=== PATIENT | female | born 1965 | race Caucasian/White ===

== ENCOUNTER 2020-01-20 13:56 | Emergency (ER) | payer BC ==
[~2020-01-20] VITALS: Ht 157.5 cm; Wt 80.7 kg
[~2020-01-20 13:56] MED LIST: Z.0.AMLODIPINE BESYL PO; Z.0.METOPROLOL SUCC5 PO
[2020-01-20] MEDS ORDERED: FAMOTIDINE 20 MG TAB PO ONE (14:30)
[2020-01-20] MEDS ORDERED: PREDNISONE 20 MG TAB ONE (14:33)
[2020-01-20] MEDS ORDERED: FAMOTIDINE 20 MG TAB ONE (14:33)
[2020-01-20] MEDS ORDERED: PREDNISONE20 MG PO (14:47)
[2020-01-20] MEDS ORDERED: PEPCID20 MG PO (14:47)
--- NOTE | 2020-01-20 14:47 | Emergency Department Note ---
History of Present Illnes History of Present Illness Chief Complaint: facial swelling/itchy rash on face/chest s/p taking alleve History of Present Illness This is a 54 year old female. was doing well prior to this. pt has had 3 other similar episode. no senation of closing of throat nor tongue Historian: Patient Arrival Mode: Car History limited by: condition of the patient (nor) Ethics Instructor Required: No Onset (how long ago): day(s) (1) Location: see above Quality: see above Radiation: Reports non-radiation Severity: mild Onset quality: gradual Duration (how long): day(s) (1) Timing of current episode: constant Progression: worsening Chronicity: recurrent Context: Denies recent illness, Denies recent surgery, Denies recent immobiliza tion, Denies recent travel, Denies trauma/injury, Denies new medications, Denies hx of DVT/PE, Denies non-compliance w/ medications Relieving factors: none Exacerbating factors: none Associated symptoms: Reports denies other symptoms Treatments prior to arrival: none Past Medical/Family History Physician Review I have reviewed the patient's past medical and family history. Any updates have been documented here. Past Medical History Recent Fever: No Clinical Suspicion of Infectio: No New/Unexplained Change in Ment: No Other Medical History: arrhythmia, mvp, allergic reaction Other Surgery: endometrial ablasion, corneal implant Social History Smoking Cessation: Never Smoker Counseling Performed: No Alcohol Use: None Any Illegal Drug Use: No TB Exposure/Symptoms: No Physically hurt or threatened: No Family History Family history of heart diseas: No Other Last Tetanus: unknown Any Pre-Existing Lines (PICC,: No Is patient up to date on immun: No Review of Systems Review of Systems Constitutional: Reports no symptoms EENTM: Reports as per HPI Cardiovascular: Reports no symptoms Respiratory: Reports no symptoms Gastrointestinal: Reports no symptoms Genitourinary: Reports no symptoms Musculoskeletal: Reports no symptoms Integumentary: Reports as per HPI, Reports rash Neurological: Reports no symptoms Psychological: Reports no symptoms Endocrine: Reports no symptoms Hematological/Lymphatic: Reports no symptoms Review of other systems: All other systems negative Physical Exam Related Data Allergies: Coded Allergies: Sulfa (Sulfonamide Antibiotics) (Verified Allergy, Severe, COMA, 08/21/13) naproxen (Verified Allergy, Unknown, 01/20/20) Vital signs reviewed: Yes Physical Exam CONSTITUTIONAL Constitutional: Present well-developed, Present well-nourished HENT HENT: Present normocephalic, Present atraumatic, Present oropharynx clear/moist, Present nose normal, Present other (no angioedema of the tongue) HENT L/R: Present left ext ear normal, Present right ext ear normal EYES Eyes: Reports PERRL, Reports conjunctivae normal NECK Neck: Present ROM normal, Present supple PULMONARY Pulmonary: Present effort normal, Present breath sounds normal CARDIOVASCULAR Cardiovascular: Present regular rhythm, Present heart sounds normal, Present capillary refill normal, Present normal rate GASTROINTESTINAL Abdominal: Present soft, Present nontender, Present bowel sounds normal GENITOURINARY Genitourinary: Present exam deferred SKIN Skin: Present warm, Present dry, Present other (hives face/chest mild angio edema of lips) MUSCULOSKELETAL Musculoskeletal: Present ROM normal NEUROLOGICAL Neurological: Present alert, Present oriented x 3, Present no gross motor or s ensory deficits PSYCHOLOGICAL Psychological: Present mood/affect normal, Present judgement normal Assessment & Plan Medical Decision Making MDM see below Assessment & Plan Final Impression: (1) Allergic reaction Depart Disposition: HOME, SELF-custodial Meds Active Scripts Prednisone (PREDNISONE) 20 Mg Tab, 60 MG PO DAILY, #15 TAB take all 3 20 mg pills at once. start tomorrow Prov:JAMEEL CONTE LAVONNE 01/20/20 Famotidine (PEPCID) 20 Mg Tablet, 20 MG PO Q12H, #20 TAB Prov:DGJAMEELGUANACO BANERJEE 01/20/20 Reported Medications Amlodipine Besylate (Amlodipine Besylate) 5 Mg Tablet, 5 MG PO daily 04/22/11 Metoprolol Succinate (Metoprolol Succinate) 50 Mg Tab.sr.24h, 25 MG PO daily 04/22/11 Medications in the ED Famotidine 20 mg ONCE ONCE PO Last administered on 01/20/20at 14:30; Admin Dose 20 MG; Start 01/20/20 at 14:30; Stop 01/20/20 at 14:39; Status DC Prednisone 60 mg ONCE ONCE PO Last administered on 01/20/20at 14:40; Admin Dose 60 MG; Start 01/20/20 at 15:00; Stop 01/20/20 at 15:01 Prednisone 60 mg STK-MED ONCE .ROUTE ; Start 01/20/20 at 14:33; Stop 01/20/20 at 14:28; Status DC Famotidine 20 mg STK-MED ONCE .ROUTE ; Start 01/20/20 at 14:33; Stop 01/20/20 at 14:28; Status DC JAMEEL CONTE Jan 20, 2020 14:47
[2020-01-20] MEDS ORDERED: PREDNISONE 20 MG TAB PO ONE (15:00)
== END 2020-01-20 15:20 | disposition home or self-care (01) ==
LOC: FSED 14:10
DX: T78.40XA Allergy, unspecified, initial encounter (principal)
CPT/HCPCS: 99283; J7512

== ENCOUNTER 2020-01-28 15:47 | Emergency (ER) | payer BC ==
[~2020-01-28] VITALS: Ht 170.2 cm; Wt 80.7 kg
[~2020-01-28 15:47] MED LIST changes: +PEPCID20 MG PO; +PREDNISONE20 MG PO
[2020-01-28] MEDS ORDERED: SODIUM CHLORIDE 0.9% 1000ML 1,000 ML IV STA (16:21)
[2020-01-28] MEDS ORDERED: ONDANSETRON HCL INJ 2MG/ML 2ML 2 MG/ML VIAL IV NR (16:30)
[2020-01-28 16:34] LABS: BASOPHILS % 0.4 % (0.0-1.0); EOSINOPHILS # (AUTO) 0.6 (0.0-0.4); EOSINOPHILS % 5.8 % (0.0-6.0); HEMATOCRIT 39.2 % (34.2-44.1); HEMOGLOBIN 12.4 g/dL (12.0-16.0); LYMPHOCYTES # (AUTO) 3.3 (1.0-3.2); LYMPHOCYTES % 30.9 % (18.0-39.1); MEAN CORPUSCULAR HEMOGLOBIN 28.5 pg (28-32); MEAN CORPUSCULAR HGB CONC 31.6 g/dL (31-35); MEAN CORPUSCULAR VOLUME 90.1 fL (81-99); MONOCYTES # (AUTO) 0.8 (0.2-0.8); MONOCYTES % 7.7 % (4.4-11.3); NEUTROPHILS # (AUTO) 5.9 (2.1-6.9); NEUTROPHILS % 54.5 % (38.7-80.0); PLATELET COUNT 301 x10e3/uL (140-360); RED BLOOD COUNT 4.35 x10e6/uL (3.6-5.1); RED CELL DISTRIBUTION WIDTH 14.1 % (11.7-14.4)
[2020-01-28 16:42] LABS: INR 0.93; PROTHROMBIN TIME 12.9 seconds (11.9-14.5)
[2020-01-28 16:43] LABS: PARTIAL THROMBOPLASTIN TIME 33.5 seconds (23.8-35.5)
[2020-01-28] MEDS ORDERED: MORPHINE SULFATE 2 MG/ML SYR 1ML IV NR (16:45)
[2020-01-28 16:52] LABS: ALANINE AMINOTRANSFERASE 16 IU/L (0-55); ALBUMIN 4.5 g/dL (3.5-5.0); ALBUMIN/GLOBULIN RATIO 1.6 (0.8-2.0); ALKALINE PHOSPHATASE 74 IU/L (40-150); ANION GAP 14.5 mmol/L (8-16); BLOOD UREA NITROGEN 15 mg/dL (7-26); BUN/CREATININE RATIO 18 (6-25); CARBON DIOXIDE 26 mmol/L (22-29); CHLORIDE 105 mmol/L (98-107); CREATINE KINASE 64 IU/L (29-168); CREATININE, SERUM 0.83 mg/dL (0.57-1.11); EST GLOMERULAR FILTRATION RATE > 60 ML/MIN (60-); GLUCOSE 137 mg/dL (74-118); POTASSIUM 3.5 mmol/L (3.5-5.1); SODIUM 142 mmol/L (136-145)
--- NOTE | 2020-01-28 16:52 | NUR ---
Willian campos in [facility] - 01/28/20 at 1655 by KPEPPING PATIENT ROOM ASSIGNMENT RECEIVED. DELAYED CALLING REPORT DUE TO VS. HOUSE SUP AWARE.
[2020-01-28 16:53] LABS: BILIRUBIN,URINE NEGATIVE (NEGATIVE); CLARITY,URINE CLEAR (CLEAR); COLOR,URINE YELLOW (YELLOW); KETONES,URINE NEGATIVE (NEGATIVE); LEUKOCYTE ESTERASE ,URINE NEGATIVE (NEGATIVE); NITRITE,URINE NEGATIVE (NEGATIVE); PROTEIN,URINE DIPSTICK NEGATIVE (NEGATIVE); URINE UROBILINOGEN 0.2 mg/dL (0.2 - 1)
[2020-01-28 17:07] LABS: BACTERIA,URINE RARE /HPF; EPITHELIAL CELLS,URINE RARE /LPF; RBC,URINE 0-5 /HPF (0-5)
[2020-01-28] MEDS ORDERED: SODIUM CHLORIDE 0.9% 50ML 50 ML ONE (17:08)
[2020-01-28] MEDS ORDERED: IOPAMIDOL 370 MG/ML 200 ML INFUS..BTL INJ ONE (17:09)
[2020-01-28 17:50] LABS: AMYLASE 41 U/L (25-125); LIPASE 37 U/L (8-78)
--- NOTE | 2020-01-28 17:59 | Emergency Department Note ---
History of Present Illnes History of Present Illness Chief Complaint: COVID PUI History of Present Illness This is a 54 year old female PT C/O RIGHT FLANK PAIN/RUQ ABD PAIN THAT RADIATES DOWN X 3 DAYS, PT ALSO STATES SHE STARTED HAVING COUGH AND RUNNY NOSE ON WEDNESDAY, DENIES BEING TESTED FOR COVID OR BEING EXPOSED TO A KNOWN COVID PATIENT. Historian: Patient Arrival Mode: Car Reject Opener And Filler Required: No Onset (how long ago): day(s) (3) Location: RIGHT ABDOMEN/FLANK Quality: PAIN Radiation: Reports abdomen Severity: moderate Onset quality: gradual Timing of current episode: constant Progression: worsening Chronicity: new Context: Denies recent illness Relieving factors: none Exacerbating factors: none Associated symptoms: Reports cough (JOSE DANIEL JACOBO MD) Past Medical/Family History Physician Review I have reviewed the patient's past medical and family history. Any updates have been documented here. (JOSE DANIEL JACOBO MD) Past Medical History Recent Fever: No Clinical Suspicion of Infectio: No New/Unexplained Change in Ment: No Past Medical History: Hypertension Other Medical History: MITRAL VALVE REGURGITATION Past Surgical History: Cholecysctectomy Other Surgery: endometrial ablasion, corneal implant (JOSE DANIEL JACOBO MD) Social History Smoking Cessation: Never Smoker Counseling Performed: No Alcohol Use: None Any Illegal Drug Use: No TB Exposure/Symptoms: No Physically hurt or threatened: No (JOSE DANIEL JACOBO MD) Family History Family history of heart diseas: No (JOSE DANIEL JACOBO MD) Other Last Tetanus: unknown Any Pre-Existing Lines (PICC,: No (JOSE DANIEL JACOBO MD) Review of Systems Review of Systems Constitutional: Reports no symptoms EENTM: Reports no symptoms Cardiovascular: Reports no symptoms Respiratory: Reports no symptoms Gastrointestinal: Reports as per HPI Genitourinary: Reports no symptoms Musculoskeletal: Reports no symptoms Integumentary: Reports no symptoms Neurological: Reports no symptoms Psychological: Reports no symptoms Endocrine: Reports no symptoms Hematological/Lymphatic: Reports no symptoms (JOSE DANIEL JACOBO MD) Physical Exam Related Data Allergies: Coded Allergies: Sulfa (Sulfonamide Antibiotics) (Verified Allergy, Severe, COMA, 08/21/13) naproxen (Verified Allergy, Unknown, 01/20/20) Triage Vital Signs Vital Signs Date Time Temp Pulse Resp B/P (MAP) Pulse Ox O2 Delivery O2 Flow Rate FiO2 01/28/20 16:00 98.9 76 18 173/78 99 Room Air Vital signs reviewed: Yes (JOSE DANIEL JACOBO MD) Physical Exam CONSTITUTIONAL Constitutional: Present well-developed, Present well-nourished HENT HENT: Present normocephalic, Present atraumatic, Present oropharynx clear/moist, Present nose normal HENT L/R: Present left ext ear normal, Present right ext ear normal EYES Eyes: Reports PERRL, Reports conjunctivae normal NECK Neck: Present ROM normal PULMONARY Pulmonary: Present effort normal, Present breath sounds normal CARDIOVASCULAR Cardiovascular: Present regular rhythm, Present heart sounds normal, Present capillary refill normal, Present normal rate GASTROINTESTINAL Abdominal: Present soft, Present bowel sounds normal, Present tender (MODERATE TENDERNESS RUQ/ARINA WITHOUT R/G); Absent guarding, Absent rebound, Absent left CVA tenderness, Absent right CVA tenderness GENITOURINARY Genitourinary: Present exam deferred SKIN Skin: Present warm, Present dry MUSCULOSKELETAL Musculoskeletal: Present ROM normal NEUROLOGICAL Neurological: Present alert, Present oriented x 3, Present no gross motor or sensory deficits PSYCHOLOGICAL Psychological: Present mood/affect normal, Present judgement normal (JOSE DANIEL JACOBO MD) Results Laboratory Result Diagram: 01/28/20 1609 01/28/20 1609 Laboratory Laboratory Tests Test 01/28/20 16:09 01/28/20 15:57 White Blood Count 10.71 x10e3/uL (4.8-10.8) Red Blood Count 4.35 x10e6/uL (3.6-5.1) Hemoglobin 12.4 g/dL (12.0-16.0) Hematocrit 39.2 % (34.2-44.1) Mean Corpuscular Volume 90.1 fL (81-99) Mean Corpuscular Hemoglobin 28.5 pg (28-32) Mean Corpuscular Hemoglobin Concent 31.6 g/dL (31-35) Red Cell Distribution Width 14.1 % (11.7-14.4) Platelet Count 301 x10e3/uL (140-360) Neutrophils (%) (Auto) 54.5 % (38.7-80.0) Lymphocytes (%) (Auto) 30.9 % (18.0-39.1) Monocytes (%) (Auto) 7.7 % (4.4-11.3) Eosinophils (%) (Auto) 5.8 % (0.0-6.0) Basophils (%) (Auto) 0.4 % (0.0-1.0) Neutrophils # (Auto) 5.9 (2.1-6.9) Lymphocytes # (Auto) 3.3 (1.0-3.2) Monocytes # (Auto) 0.8 (0.2-0.8) Eosinophils # (Auto) 0.6 (0.0-0.4) Basophils # (Auto) 0.0 (0.0-0.1) Absolute Immature Granulocyte (auto 0.07 x10e3/uL (0-0.1) Prothrombin Time 12.9 seconds (11.9-14.5) Prothromb Time International Ratio 0.93 Activated Partial Thromboplast Time 33.5 seconds (23.8-35.5) Sodium Level 142 mmol/L (136-145) Potassium Level 3.5 mmol/L (3.5-5.1) Chloride Level 105 mmol/L (98-107) Carbon Dioxide Level 26 mmol/L (22-29) Anion Gap 14.5 mmol/L (8-16) Blood Urea Nitrogen 15 mg/dL (7-26) Creatinine 0.83 mg/dL (0.57-1.11) Estimat Glomerular Filtration Rate > 60 ML/MIN (60-) BUN/Creatinine Ratio 18 (6-25) Glucose Level 137 mg/dL (74-118) Calcium Level 9.0 mg/dL (8.4-10.2) Total Bilirubin 0.2 mg/dL (0.2-1.2) Aspartate Amino Transf (AST/SGOT) 10 IU/L (5-34) Alanine Aminotransferase (ALT/SGPT) 16 IU/L (0-55) Alkaline Phosphatase 74 IU/L (40-150) Creatine Kinase 64 IU/L (29-168) Creatine Kinase MB 4.70 ng/mL (0-5.0) Troponin I 0.010 ng/mL (0-0.300) B-Type Natriuretic Peptide < 10.0 pg/mL (0-100) Total Protein 7.3 g/dL (6.5-8.1) Albumin 4.5 g/dL (3.5-5.0) Globulin 2.8 g/dL (2.3-3.5) Albumin/Globulin Ratio 1.6 (0.8-2.0) Amylase Level 41 U/L (25-125) Lipase 37 U/L (8-78) Urine Color Yellow (YELLOW) Urine Clarity Clear (CLEAR) Urine pH 5.5 (5 - 7) Urine Specific [place] 1.015 (1.010-1.025) Urine Protein Negative (NEGATIVE) Urine Glucose (UA) Negative (NEGATIVE) Urine Ketones Negative (NEGATIVE) Urine Blood Trace (NEGATIVE) Urine Nitrite Negative (NEGATIVE) Urine Bilirubin Negative (NEGATIVE) Urine Urobilinogen 0.2 mg/dL (0.2 - 1) Urine Leukocyte Esterase Negative (NEGATIVE) Urine RBC 0-5 /HPF (0-5) Urine WBC 6-10 /HPF (0-5) Urine Epithelial Cells Rare /LPF (NONE) Urine Bacteria Rare /HPF (NONE) Lab results reviewed: Yes (JOSE DANIEL JACOBO MD) Procedures 12 Lead ECG Interpretation ECG Interpretation : ECG: ECG 1 Reject Opener And Filler: Interpreted by ED physician Date: Jan 28, 2020 Time: 16:38 Rhythm: sinus rhythm Rate: normal BPM: 68 QRS axis: normal ST segments normal: Yes T waves normal: Yes Clinical Impression: normal ECG (JOSE DANIEL JACOBO MD) Assessment & Plan Medical Decision Making MDM ABD PAIN, COUGH - CHECK CBC, CHEM, CARDIACS, ECG, AMYLASE/LIPASE, UA/CX, CT CHEST/ABD/PELVIS, COVID SWAB - R/O STEMI/NSTEMI, RENAL STONE, PYELONEPHRITIS, COLITIS, PANCREATITIS, PNEUMONIA, COVID (JOSE DANIEL JACOBO MD) MDM Labs are largely unremarkable, CT shows incidental mediastinal mass likely thymoma or thyroid goiter. Doubt infectious etiology. CT abdomen and pelvis is nonspecific and does not show any acute cause for her pain. I discussed results patient that she will require follow-up imaging and evaluation of these incidental findings. She will call Dr. Villalba in the morning to arrange for follow-up appointment. Patient is appropriate for discharge. (ELAINA QUEEN MD) Reassessment Reassessment REPORT TO DR QUEEN TO F/U LABS, CT'S AND DISPO PT (JOSE DANIEL JACOBO MD) Reassessment time: 20:58 Reassessment Well appearing, NAD (ELAINA QUEEN MD) Assessment & Plan Final Impression: (1) Abdominal pain (JOSE DANIEL JACOBO MD) Final Impression: (1) Abdominal pain (2) Mediastinal mass (ELAINA QUEEN MD) Depart Disposition: HOME, SELF-CARE Last Vital Signs Date Time Temp Pulse Resp B/P (MAP) Pulse Ox O2 Delivery O2 Flow Rate FiO2 01/28/20 16:00 98.9 76 18 173/78 99 Room Air (JOSE DANIEL JACOBO MD) Home Meds Active Scripts Prednisone (PREDNISONE) 20 Mg Tab, 60 MG PO DAILY, #15 TAB take all 3 20 mg pills at once. start tomorrow Prov:URVASHI CONTESparkle BANERJEE 01/20/20 Famotidine (PEPCID) 20 Mg Tablet, 20 MG PO Q12H, #20 TAB Prov:URVASHI CONTESparkle BANERJEE 01/20/20 Reported Medications Amlodipine Besylate (Amlodipine Besylate) 5 Mg Tablet, 5 MG PO daily 04/22/11 Metoprolol Succinate (Metoprolol Succinate) 50 Mg Tab.sr.24h, 25 MG PO daily 04/22/11 Medications in the ED Ondansetron HCl 4 mg ONCE IV Last administered on 01/28/20at 16:44; Admin Dose 4 MG; Start 01/28/20 at 16:30; Stop 01/28/20 at 17:59 Sodium Chloride 1,000 ml @ 0 mls/hr Q0M STAT IV Last administered on 01/28/20at 16:44; Admin Dose 1,000 MLS/HR; Start 01/28/20 at 16:21; Stop 01/28/20 at 16:26; Status DC Morphine Sulfate 4 mg ONCE IV ; Start 01/28/20 at 16:45; Stop 01/28/20 at 17:59 Sodium Chloride 50 ml @ ud STK-MED ONCE .ROUTE ; Start 01/28/20 at 17:08; Stop 01/28/20 at 17:02; Status DC Iopamidol 74,000 mg STK-MED ONCE INJ ; Start 01/28/20 at 17:09; Stop 01/28/20 at 17:03; Status DC (JOSE DANIEL JACOBO MD) JOSE DANIEL JACOBO MD Jan 28, 2020 17:59 ELAINA QUEEN MD Jan 28, 2020 20:58
--- NOTE | 2020-01-28 20:24 | Diagnostic Imaging Report ---
EXAM: CT Chest, Abdomen and Pelvis WITH contrast INDICATION: PE PROTOCOL COMPARISON: None. TECHNIQUE: Chest, abdomen and pelvis were scanned utilizing a multidetector helical scanner from the lung apex to the pubic symphysis after administration of IV contrast. Pulmonary embolism protocol was performed for the chest. Coronal and sagittal reformations were obtained. Routine protocol was performed. Scan was performed when during portal venous phase. IV CONTRAST: 100 mL of Isovue 370 ORAL CONTRAST: None COMPLICATIONS: None FINDINGS: LINES and TUBES: None. LUNGS AND AIRWAYS: The lungs are unremarkable. Airways are normal. PLEURA: The pleural spaces are clear. HEART AND MEDIASTINUM: Anterior mediastinal mass measuring 3.3 x 4.8 x 4.5 cm which extends superiorly and abuts the inferior lobes of the thyroid. Mass may be mildly heterogenous, with possible calcifications at its superior aspect, although evaluation is limited due to streak artifact from the contrast bolus. HEPATOBILIARY: Subcentimeter hypodensity in the right hepatic lobe is too small to characterize, possible cyst. There is mild intra- and extra- hepatic biliary dilation likely post cholecystectomy resevoir effect. GALLBLADDER: There are cholecystectomy clips. SPLEEN: No splenomegaly. PANCREAS: No focal masses or ductal dilatation. ADRENALS: No adrenal nodules KIDNEYS/URETERS: Kidneys enhance symmetrically. No hydronephrosis. No urinary tract calculi. Heterogenous filling of the right renal pelvis may be secondary to contrast bolus timing, although underlying urothelial lesion is not excluded. Subcentimeter hypodensities in the bilateral kidneys are too small to characterize, likely cysts. GI TRACT: No abnormal distention, wall thickening, or evidence of bowel obstruction. Appendix is normal. PELVIC ORGANS/BLADDER: Unremarkable. LYMPH NODES: No lymphadenopathy. VESSELS: Unremarkable. PERITONEUM / RETROPERITONEUM: No free air or fluid. BONES: Unremarkable. SOFT TISSUES: Unremarkable. IMPRESSION: 1. 4.8 cm anterior mediastinal mass that abuts the inferior lobes of the thyroid. Differential includes thyroid goiter, lymphoma, and thymoma. Consider nuclear medicine thyroid scan as part of workup to exclude thyroid etiology. 2. No pulmonary emboli. 3. No acute lung disease. 4. Heterogenous filling in the right renal pelvis may be secondary to contrast bolus timing, although an underlying urothelial lesion is not excluded. Nonemergent outpatient MR or CT urogram is recommended for further evaluation. Signed by: Edgar Hughes MD on 01/28/2020 8:21 PM
[2020-01-28] MEDS ORDERED: ZOFRAN4 MG PO (21:30)
[2020-01-28] MEDS ORDERED: ONDANSETRON HCL 4 MG ORAL DISINTEGRATING TAB ONE (21:43)
[2020-01-28] MEDS ORDERED: ONDANSETRON HCL 4 MG ORAL DISINTEGRATING TAB PO ONE (21:45)
== END 2020-01-28 22:18 | disposition home or self-care (01) ==
LOC: ER 16:10
DX: R10.11 Right upper quadrant pain (principal); R05 Cough; I10 Essential (primary) hypertension; J98.59 Other diseases of mediastinum, not elsewhere classified; Z11.59 Encounter for screening for other viral diseases
CPT/HCPCS: 36415; 71260; 74177; 80053; 81001; 82150; 82550; 82553; 83690; 83880; 84484; 85025; 85610; 85730; 87040; 87086; 93005; 99284; J2270; J2405; J7030; Q0162; Q9967; U0002

== ENCOUNTER 2022-07-24 17:45 | Emergency (ER) | payer BC ==
[~2022-07-24] VITALS: Ht 170.2 cm; Wt 102.1 kg
[~2022-07-24 17:45] MED LIST changes: +ZOFRAN4 MG PO
[2022-07-24] MEDS ORDERED: SODIUM CHLORIDE 0.9% 1000ML 1,000 ML IV ONE ×2 (18:30)
[2022-07-24] MEDS ORDERED: PROMETHAZINE 12.5MG/ NACL 0.9% 12.5 MG/50 ML BAG IV ONE (18:30)
[2022-07-24 19:01] LABS: BASOPHILS # (AUTO) 0.1 (0.0-0.1); BASOPHILS % 0.6 % (0.0-1.0); EOSINOPHILS # (AUTO) 0.3 (0.0-0.4); EOSINOPHILS % 2.8 % (0.0-6.0); HEMATOCRIT 38.2 % (34.2-44.1); HEMOGLOBIN 11.6 g/dL (12.0-16.0); LYMPHOCYTES # (AUTO) 3.3 (1.0-3.2); LYMPHOCYTES % 32.4 % (18.0-39.1); MEAN CORPUSCULAR HEMOGLOBIN 28.2 pg (28-32); MEAN CORPUSCULAR HGB CONC 30.4 g/dL (31-35); MEAN CORPUSCULAR VOLUME 92.9 fL (81-99); MONOCYTES # (AUTO) 0.7 (0.2-0.8); MONOCYTES % 6.8 % (4.4-11.3); NEUTROPHILS # (AUTO) 5.8 (2.1-6.9); PLATELET COUNT 270 x10e3/uL (140-360); RED BLOOD COUNT 4.11 x10e6/uL (3.6-5.1); RED CELL DISTRIBUTION WIDTH 14.2 % (11.7-14.4)
[2022-07-24 19:12] LABS: ALBUMIN 3.8 g/dL (3.5-5.0); ALBUMIN/GLOBULIN RATIO 1.2 (0.8-2.0); ANION GAP 18.7 mmol/L (8-16); CALCIUM 7.7 mg/dL (8.4-10.2); CREATININE, SERUM 0.92 mg/dL (0.57-1.11); POTASSIUM 3.7 mmol/L (3.5-5.1)
== END 2022-07-24 23:04 | disposition home or self-care (01) ==
LOC: ER 18:02
DX: E86.1 Hypovolemia (principal); R55 Syncope and collapse; R11.2 Nausea with vomiting, unspecified; I10 Essential (primary) hypertension; I34.0 Nonrheumatic mitral (valve) insufficiency; R94.31 Abnormal electrocardiogram [ECG] [EKG]; Z85.850 Personal history of malignant neoplasm of thyroid
CPT/HCPCS: 36415; 70450; 71045; 80053; 84484; 85025; 93005; 99284; J2550; J7030